=== PATIENT | male | born 2000 | race African-American/Black ===

== ENCOUNTER 2022-12-06 19:11 | Emergency (ER) | payer SELFPAY ==
[~2022-12-06] VITALS: Ht 172.7 cm; Wt 73.0 kg
[2022-12-06 19:22] VITALS: BP 128/82; PULSE 70; RESP 16; TEMP 98.5; O2SAT 98
[2022-12-06] MEDS ORDERED: TETANUS, DIPHTHERIA, PERTUSSIS VAC/PF 0.5ML (>10YR OLD) IM ONE (19:30)
[2022-12-06] MEDS ORDERED: LIDOCAINE HCL/PF 1% 10 MG/ML 5ML VIAL INFIL ONE (19:30)
[2022-12-06] MEDS ORDERED: CEPH250C2 MT (20:11)
== END 2022-12-06 20:33 | disposition home or self-care (01) ==
LOC: ER 19:11
DX: M79.644 Pain in right finger(s) (principal)
CPT/HCPCS: 90715; 20520; 90471; 99284; J3490; Z7610